=== PATIENT | male | born 1945 | race Asian ===

== ENCOUNTER 2017-11-14 08:46 | Outpatient (CLI) | payer BC ==
--- NOTE | 2017-11-14 15:02 | Fluoroscopy Report ---
MODIFIED BARIUM SWALLOW History: dysphagia. Findings: Video radiography was provided by the radiologist for speech therapy to assess the swallowing mechanism. 1 fluoroscopic image was captured. Impression: Successful modified barium swallow.
== END 2017-11-14 08:47 | disposition home or self-care (01) ==
LOC: PT 08:46
PROVIDERS: ATTEND Otolaryngology
DX: R13.10 Dysphagia, unspecified (principal)
CPT/HCPCS: 74230